=== PATIENT | male | born 1950 | race Caucasian/White ===

== ENCOUNTER → 2016-06-19 | Outpatient (CLI) | payer BC ==
[~2016-06-19] MED LIST: ALBUTEROL MININEB NEB; ALBUTEROL17 GM; ALLEGRA; AMLODIPINE BESYL5 MG PO; ASPIRIN325 M1 PO; ASPIRIN81 MG PO; ATORVASTATIN CA80 MG PO; CARDIZEM CD; CIPRO PO; CLOPIDOGREL75 MG PO; COUMADIN5 MG PO; DIOVAN HCT 160/1 TAB PO; DURLAZA162.5 MG PO; FLOMAX0.4 MG PO; GLIMEPIRIDE2 MG PO; IMDUR-ER30 M2 PO; INVOKANA100 MG PO; JANUVIA100 MG PO; JARDIANCE10 MG PO; K-DUR20 ME2 PO; LANTUS SOL100 UNIT/1 SUBQ; LANTUS100 U/M1 SQ; LASIX PO; LIPITOR80 MG PO; LISINOPRIL20 MG PO; LOPRESSOR PO; LORTAB 7.5-5001 TAB; MAIL ORDER PHARMACY; METFORMIN HCL500 M3 PO; METFORMIN PO; METOPROLOL TAR25 MG PO; MONTELUKAST SOD10 MG PO; NEXIUM; NITROGLYGERIN0.4 MG SL; PANTOPRAZOLE SO40 MG PO; PRINIVIL10 MG PO; REGLAN PO; SIMVASTATIN20 MG PO; SINGULAIR; SINGULAIR PO; SYNTHROID0.05 MG PO; SYNTHROID0.15 MG PO; UNKNOWN DIURETIC; VICODIN PO; VITAMIN B122500 MCG PO; VITAMIN C60 MG PO; VITAMIN D35000 UNIT PO; ZYRTEC10 M2 PO; [UNRECOGNIZED DRUG - OTHER]
--- NOTE | ~2016-06-19 | US113 ---
[facility] A Service of [facility] RADIOLOGY TEXT RESULTS PATIENT: EVANGELIST KIM LOCATION: [facility] : 52 UNIT #: [id number] AGE: [address]: LUISA APARICIO SEX: M ORDER DR: [id number] [facility] [address] [place], [place] [address] [id number] MR#: [id number] Acc #: [id number] NAME: EVANGELIST KIM : 1950 SEX: M STUDY DATE/TIME: 06/19/2016 14:47 UNIT: [facility] ROOM: STUDY DESCRIPTION: US Scrotal Duplex Complete Attending Physician: Generic Doctor Not In System Referring Physician: Generic Doctor Not In System Ordering Physician: Physician Non-Staff Primary Care Physician: Manuelito Blanton M.D. MEDICAL IMAGING REPORT This report is preliminary unless electronic signature is present EXAM Scrotal ultrasound with Doppler HISTORY Left testicle pain for 6 days. No injury. FINDINGS Ultrasound examination of the scrotum and testes was performed with hummel-scale and Doppler. There is no testicular mass or enlargement. Blood flow is noted in both testes on color Doppler. There are bilateral round, solid epididymal masses, 1 on the right and 2 on the left, measuring 1.3 cm in the right epididymal head, 1.5 cm in the left epididymal head, and 1.2 cm in the mid left epididymis. There is also a simple cyst in the left epididymal head measuring 9 mm. Very small bilateral hydroceles. IMPRESSION 1. Bilateral solid epididymal masses, 1 on the right and 2 on the left measuring 1.3 cm on the right, and 1.5 cm and 1.2 cm on the left. Suggest urologic referral. 2. There is also an incidental simple cyst in the left epididymal head measuring 9 mm. 3. Both testes are normal. 4. Normal blood flow to both testes on color Doppler. 5. Very small bilateral hydroceles. Dictated by... Jay Red M.D. THIS IS AN ELECTRONICALLY VERIFIED REPORT [facility] A Service of [facility] RADIOLOGY TEXT RESULTS PATIENT: EVANGELIST KIM LOCATION: [facility] : 54 UNIT #: [id number] AGE: [address]: LUISA APARICIO SEX: M ORDER DR: Jay Red M.D. at 06/20/2016 10:40 PM DFL/mohit TD: 06/20/2016 00:21 JOB #: [id number] MEDICAL IMAGING REPORT Page 1 of 1 COPY
== END | disposition home or self-care (01) ==
LOC: CGUS 14:16
DX: N45.2 Orchitis (principal); N50.89 Other specified disorders of the male genital organs; N43.3 Hydrocele, unspecified
CPT/HCPCS: 93975

== ENCOUNTER 2016-11-05 20:16 | Inpatient (IN) | payer BC ==
[~2016-11-05] VITALS: Ht 170.2 cm; Wt 97.2 kg
--- NOTE | ~2016-11-05 | EKG ---
PATIENT: EVANGELIST KIM UNIT #: [id number] Ventricular Rate: 54 BPM Atrial Rate: 54 BPM P-R Interval: 174 ms QRS Duration: 106 ms Q-T Interval: 488 ms QTC Calculation(Bezet): 462 ms P [place]: 38 degrees Calculated R [place]: 5 degrees Calculated T [place]: 124 degrees Diagnosis Line: Sinus bradycardia with Premature atrial complexes Diagnosis Line: Left ventricular hypertrophy with repolarization Diagnosis Line: abnormality Diagnosis Line: Abnormal ECG Diagnosis Line: When compared with ECG of 05-NOV-2016 20:21, Diagnosis Line: (unconfirmed) Diagnosis Line: Premature atrial complexes are now Present Diagnosis Line: Confirmed by PATRICIO MCGUIRE MD ([id number]) on 11/07/2016 Diagnosis Line: 4:56:58 PM INTERPRETING MD: SHAYAL ESPINOZA
--- NOTE | ~2016-11-05 | DS ---
Unit #: [id number] #: [id number] Patient: EVANGELIST KIM [id number] [address] [place], [place] [address] [id number] I MR#: [id number] NAME: EVANGELIST KIM ROOM: 578 Age: 66 Sex: M Admission Date: 11/06/2016 : 1950 Discharge Date: 11/08/2016 Attending Physician: Donny Quezada M.D. Referring Physician: Manuelito Blanton M.D. Primary Care Physician: Manuelito Blanton M.D. DISCHARGE SUMMARY DISCHARGE DIAGNOSES 1. Acute lateral wall non ST elevation myocardial infarction. 2. Coronary artery disease, status post left cardiac catheterization on 11/06/[address] Quezada, which revealed a normal left ventricular function. Distal left main 75%. Left anterior descending 100% at first septal zipper joiner. Left internal mammary artery to left anterior descending patent with no distal stenosis. First diagonal 99% with distal vessel normal. Saphenous vein graft to second diagonal with a thrombotic occlusion of 99%, very small distal vessel. Mid left circumflex 50%. First obtuse marginal 100%. Saphenous vein graft to first obtuse marginal patent. Right coronary artery dominant. Mid right coronary artery 60%. Distal right coronary artery 50%. Medical management with DAPT and Coumadin for six weeks. Consider percutaneous coronary intervention on saphenous vein graft to the diagonal if angina continues. May consider percutaneous coronary intervention on left main and first diagonal. Angina persists on medical management. 3. Hypertension. 4. Hyperlipidemia. 5. Diabetes mellitus type 2. 6. Obstructive sleep apnea. 7. Mild thrombocytopenia resolved. 8. Mild anemia with a hemoglobin of 11. DISCHARGE MEDICATIONS 1. Metformin 2,000 mg p.o. at bedtime. 2. Coumadin 7.5 mg x1 today and then 5 mg p.o. daily. 3. Januvia 1 tablet p.o. at bedtime. 4. Atorvastatin 80 mg p.o. at bedtime. 5. Metoprolol tartrate 25 mg p.o. b.i.d. 6. Furosemide 40 mg p.o. daily. 7. Lisinopril 10 mg p.o. daily. 8. Lantus 36 units subcu at bedtime. 9. Singulair 10 mg p.o. at bedtime. 10. Aspirin 81 mg p.o. daily. 11. Plavix 75 mg p.o. daily. 12. Invokana 100 mg p.o. at bedtime. 13. Jardiance 25 mg p.o. at bedtime. 14. Synthroid 200 mcg p.o. daily. 15. Imdur ER 30 mg p.o. daily. 16. Nitroglycerin 0.4 mg sublingual every 4 minutes x3 p.r.n. for chest pain. 17. Vitamin B12 1,000 mcg p.o. at bedtime. 18. Ascorbic acid 1,000 mg p.o. at bedtime. Unit #: [id number] #: [id number] Patient: EVANGELIST KIM 19. Vitamin D 5000 units p.o. at bedtime. 20. Potassium chloride 20 mEq p.o. daily. HOSPITAL COURSE This is a 66-year-old white male with the past medical history of hypertension, hyperlipidemia and diabetes mellitus type 2, GERD, asthma and obstructive sleep apnea with CPAP use. The patient also has a history of coronary artery disease and underwent coronary artery bypass grafting x3 grafts in the past in 2008. 2D echocardiogram in 2007 revealed an ejection fraction of 55%. The patient presented to the hospital on 11/06/2016 with complaints of chest pain at rest. The chest pain was accompanied by shortness of breath, diaphoresis, and nausea. There was radiation to left shoulder. He received nitroglycerin, which resolved his symptoms. In the emergency department, his point of care troponin was 4.83. He ruled in for a myocardial infarction. Chest x-ray revealed stable cardiomegaly with bibasilar atelectasis. EKG revealed sinus bradycardia with T wave inversion in the anterolateral and septal leads. The patient was started on high dose statin, aspirin, beta-maribell and FAHAD inhibitor. Heparin drip was started per weight base protocol. Fasting lipid profile was obtained. The patient was recommended for cardiac catheterization. Coronary angiography on 11/06/2016 revealed distal left main stenosis of 75%. The LAD was 100% at the first septal zipper joiner. There was a patent PALMA to the LAD. The first diagonal was 99%. There was no graft to the first diagonal. The saphenous vein graft to the second diagonal was a thrombotic occlusion of 99%. There was a very small distal vessel. The mid left circumflex was 50%. First obtuse marginal was 100%. There was a patent saphenous vein graft to the first obtuse marginal. The right coronary artery was dominant. There was no obstructive disease of 50% to 60% in the mid and distal segments. The patient was started on Integrilin, aspirin, and Plavix. He was considered for PCI of the diagonal. It was opted to try medical management. The patient was placed on aspirin, Plavix, and Coumadin for six weeks. Followed by a possible PCI if angina continues. The patient could undergo PCI of the saphenous vein graft to the second diagonal. He could also be considered for a PCI of the distal left main and first diagonal. A chest x-ray was obtained on 11/07/2016 and revealed no evidence of congestive heart failure. Telemetry reveals sinus bradycardia/sinus rhythm. There are no pauses or high degree AV blocks. The patient denies chest pain or shortness of breath. He was started on oral Lasix and his volume status is stable. His topical nitrates have been stopped and he is on Imdur as a long-acting nitrate. His Integrilin was stopped and he is off of heparin. EKG reveals no acute findings. Cath site is soft without hematoma. Troponin is trending down. His troponin peaked at 4.83 but is now 2.95. CK is 98 with an MB of 4.9 and MB% of 5.0. Patient has been instructed on the importance of medications. He has been advised to seek medical attention for recurrent chest pain. He was given Coumadin 7.5 mg yesterday and today. He will be sent home with Coumadin 5 mg p.o. daily. PT and INR has been ordered on 11/11/2016 at our office. He is stable and will be discharged home today. DIAGNOSTIC STUDIES LABORATORY STUDIES: Blood count 7.1, hemoglobin 13.8, hematocrit 40.8, platelets 145. Sodium 139, potassium 4.0, chloride 103, CO2 25, BUN 21, creatinine 0.9, glucose 129. AST 15, ALT 15, alk phos 96. Troponin 4.83 and 2.95. CK total 98, MB 4.9%, %MB 5.0. Total cholesterol 117, triglycerides 84, LDL 63. HDL 37. INR 1.1. Unit #: [id number] #: [id number] Patient: EVANGELIST KIM IMAGING STUDIES: Chest x-ray reveals status post median sternotomy and CABG. Stable cardiac enlargement. Final linear densities in bilateral lung bases unchanged. Could represent atelectasis or minimal chronic scarring. No pleural effusion, pneumothorax, or suspicious nodule. CARDIOVASCULAR STUDIES: Electrocardiogram reveals normal sinus rhythm. Mild T wave abnormality in the anterolateral and septal leads. QTC 440 msec. PHYSICAL EXAMINATION VITAL SIGNS: Temperature 98.4, pulse 55, blood pressure 110/61. CONSTITUTIONAL: This is a 66-year-old male in no acute distress. SKIN: Warm and dry. NECK: Supple. No jugular vein distention. No hepatojugular reflux. Normal carotid upstrokes. No carotid bruits auscultated. HEART: S1 and S2. Regular rate and rhythm. No murmurs, rubs or gallops. LUNGS: Bilateral breath sounds. Good air entry throughout lung sarabia. Respirations even and unlabored. No rales, rhonchi or wheezes. ABDOMEN: Soft, nontender, nondistended. Positive bowel sounds auscultated x4 quadrants. Left wrist is soft without hematoma. DISCHARGE INSTRUCTIONS 1. Patient will be discharged home today. 2. Followup with primary care provider in one to two weeks. 3. Followup with endocrinology as needed. 4. Followup with Dr. Quezada in six to eight weeks. All of us will call with an appointment. 5. Post cath instructions provided. 6. Patient has been advised to seek medical attention for recurrent chest pain. 7. Prescriptions have been provided for metoprolol, Furoside, Lipitor, lisinopril, Imdur, potassium chloride, Coumadin and nitroglycerin. 8. The patient has been advised to have a PT/INR on Thursday11/11/2016 in our office. 9. After six weeks of anticoagulation he could begin setup for a PCI and stent. Dictated by... Cherelle Spring APRN for Tyrel Mccarty/araceli TD: 11/11/2016 08:55 JOB #: [id number] CC: [facility] Unit #: [id number] #: [id number] Patient: EVANGELIST KIM DISCHARGE SUMMARY Page 1 of 1 X X DISCHARGE SUMMARY
--- NOTE | ~2016-11-05 | HP ---
Unit #: [id number] #: [id number] Patient: EVANGELIST KIM [id number] [address] [place], [place] [address] [id number] I MR#: [id number] NAME: EVANGELIST KIM ROOM: 578 Age: 66 Sex: M Admission Date: 11/06/2016 : 1950 Attending Physician: Di Howe M.D. Referring Physician: Manuelito Blanton M.D. Primary Care Physician: Manuelito Blanton M.D. HISTORY AND PHYSICAL HISTORY OF PRESENT ILLNESS This is a 66-year-old male with a prior history of hypertension, GERD, diabetes mellitus type 2, asthma, obstructive sleep apnea with CPAP use, history of kidney stones, and coronary artery disease, status post CABG x3 in the past. An echocardiogram in 2007 showed an LVEF of 55%. The patient presented to the ER with reports of midsternal chest tightness and heaviness that started around 7 p.m. on November 06, 2016, and occurred at rest. It was accompanied with shortness of breath, diaphoresis, nausea, and tightness radiating into his left shoulder. The pain lasted until he received nitroglycerin in the ER around 8 p.m. He is currently chest pain free. He denies palpitations or lightheadedness. He does report exertional shortness of breath at times. His point of care troponin in the ER was less than 0.05 and repeat troponin was 4.83. A chest x-ray showed stable cardiomegaly with bibasilar atelectasis. PAST MEDICAL HISTORY 1. Hypertension. 2. Gastroesophageal reflux disease. 3. Diabetes mellitus type 2. 4. Asthma. 5. Obstructive sleep apnea with CPAP. 6. Kidney stones. 7. Coronary artery disease, status post CABG x3 in 2008. 8. Echocardiogram with EF of 55% in 2007. 9. Cardiac stress test in June 2007 showed anteroapical wall ischemia. PAST SURGICAL HISTORY 1. CABG x3. 2. Vasectomy. 3. Knee surgery. 4. ESWL for kidney stones. 5. Thyroidectomy status post thyroid cancer. SOCIAL HISTORY He lives with his . He states he is fairly active. He is able to mow his lawn with no chest discomfort, although he does have some shortness of breath when working on his lawn which resolves with rest. He denies alcohol or illicit drug use. He is a lifetime nonsmoker. FAMILY HISTORY His mother had coronary artery disease, and his father had an CA at the age of 91. Unit #: [id number] #: [id number] Patient: EVANGELIST KIM E ALLERGIES Sulfa and hydromorphone. HOME MEDICATIONS 1. Singulair 10 mg p.o. at bedtime. 2. Lisinopril 20 mg p.o. at bedtime. 3. Metoprolol tartrate 25 mg p.o. at bedtime. 4. Atorvastatin 80 mg p.o. at bedtime. 5. Jardiance 25 mg p.o. at bedtime. 6. Invokana 100 mg p.o. at bedtime. 7. Januvia 100 mg p.o. at bedtime. 8. Lantus Solostar 36 units subcutaneous at bedtime. 9. Metformin 2000 mg p.o. at bedtime. 10. Vitamin B12 at 1000 mcg p.o. at bedtime. 11. Vitamin D3 at 5000 units p.o. at bedtime. 12. Vitamin C at 1000 mg p.o. at bedtime. 13. Durlaza 162 mg p.o. at bedtime. 14. Synthroid 200 mcg p.o. at bedtime. REVIEW OF SYSTEMS A 10-point review of systems was conducted and is otherwise negative except for what is stated in the HPI. PHYSICAL EXAMINATION VITAL SIGNS: Temperature 98.2, heart rate 62, respiratory rate 18, and blood pressure 167/60. GENERAL: This is an alert and oriented 66-year-old male resting in bed in no acute distress. HEENT: Head is atraumatic and normocephalic. Pupils are equal and reactive to light. Mucous membranes are moist and intact. NECK: Supple. Trachea is midline. No JVD. LUNGS: Clear and nonlabored respirations. CARDIOVASCULAR: S1 and S2, regular rate and rhythm. No significant murmurs, rubs, or gallops. ABDOMEN: Soft, nontender, and nondistended. Bowel sounds are positive. EXTREMITIES: Pulses are palpable. No pedal edema. No cyanosis. NEUROLOGIC: Alert and oriented x3. Follows all commands equally and moves all extremities without difficulty. DIAGNOSTIC STUDIES LABORATORY: Sodium 140, potassium 4.2, chloride 106, BUN 21, creatinine 0.8, and glucose 217. Hemoglobin 13.6, hematocrit 41, white blood cell count 8.3, and platelets 149,000. Point of care troponin less than 0.05 and repeat troponin 4.83. AST 15, ALT 15, and alkaline phosphatase 96. PT 10.5, INR 1, and PTT 27.3. IMAGING: Chest x-ray shows stable cardiomegaly and bibasilar atelectasis. CARDIOLOGY: EKG shows sinus bradycardia with ventricular rate of 51 and T wave inversions in septal and anterolateral leads. ASSESSMENT 1. Non-ST segment myocardial infarction. 2. Chest pain. 3. Noninsulin-dependent diabetes mellitus. 4. Hypertension. 5. Hyperlipidemia. 6. Obstructive sleep apnea. Unit #: [id number] #: [id number] Patient: EVANGELIST KIM 7. Coronary artery disease, status post three-vessel coronary artery bypass grafting in 2008. 8. Metabolic syndrome. PLAN 1. Continue statin, aspirin, beta maribell, and FAHAD. 2. Start heparin drip, weight-based protocol, with 5000 units heparin bolus. 3. Plan for cardiac cath. 4. Check fasting lipid profile. 5. Discontinue Lovenox. 6. Check labs in the a.m. 1. Dictated by Ana Maria Taylor APRN for Tyrel Mccarty TD: 11/06/2016 14:32 JOB #: [id number] HISTORY AND PHYSICAL Page 1 of 1 X X HISTORY AND PHYSICAL
--- NOTE | ~2016-11-05 | CR63 ---
[facility] A Service of [facility] RADIOLOGY TEXT RESULTS PATIENT: EVANGELIST KIM LOCATION: [facility] : 54 UNIT #: [id number] AGE: [address]: Donny Quezada MD SEX: M ORDER DR: [id number] [facility] [address] [place], [place] [address] [id number] I MR#: [id number] Acc #: [id number] NAME: EVANGELIST KIM : 1950 SEX: M STUDY DATE/TIME: 11/07/2016 8:42 UNIT: [facility] ROOM: [facility] STUDY DESCRIPTION: CR Chest 2 View Attending Physician: Donny Quezada M.D. Referring Physician: Manuelito Blanton M.D. Ordering Physician: Donny Quezada M.D. Primary Care Physician: Manuelito Blanton M.D. MEDICAL IMAGING REPORT This report is preliminary unless electronic signature is present EXAM 2 views chest, 11/07/2016. HISTORY Rhonchi. TECHNIQUE PA and lateral radiographs of the chest are presented. COMPARISON 11/05/2016 FINDINGS Status post median sternotomy and CABG. Stable cardiac enlargement. Lung volumes moderate. Fine linear densities, bilateral lung bases, unchanged. These may reflect persistent atelectasis or areas of minimal chronic scarring. There is no clear indication of acute infectious or inflammatory disease. There is no pleural effusion or pneumothorax, and no suspicious nodule. No acute-appearing bony abnormality. Visualized upper abdomen unremarkable. Dictated by... Duane Damian M.D. THIS IS AN ELECTRONICALLY VERIFIED REPORT Duane Damian M.D. at 11/10/2016 12:58 PM SANDRO/ismael TD: 11/07/2016 17:58 JOB #: [id number] [facility] A Service of [facility] RADIOLOGY TEXT RESULTS PATIENT: EVANGELIST KIM LOCATION: [facility] 57 : 54 UNIT #: [id number] AGE: [address]: Donny Quezada MD SEX: M ORDER DR: MEDICAL IMAGING REPORT Page 1 of 1 COPY
--- NOTE | ~2016-11-05 | CR72 ---
[facility] A Service of [facility] RADIOLOGY TEXT RESULTS PATIENT: EVANGELIST KIM LOCATION: [facility] 578-01 : 54 UNIT #: [id number] AGE: [address]: Di Howe MD SEX: M ORDER DR: [id number] [facility] [address] [place], [place] [address] [id number] I MR#: [id number] Acc #: [id number] NAME: EVANGELIST KIM : 1950 SEX: M STUDY DATE/TIME: 11/05/2016 21:34 UNIT: [facility] ROOM: [facility] STUDY DESCRIPTION: CR Chest Single View Portable Attending Physician: Di Howe M.D. Referring Physician: Manuelito Blanton M.D. Ordering Physician: Jet Mills M.D. Primary Care Physician: Manuelito Blanton M.D. MEDICAL IMAGING REPORT This report is preliminary unless electronic signature is present EXAM Portable chest, 11/05/2016 HISTORY Chest pain and shortness of breath beginning 11/04/2016. Benign essential hypertension. FINDINGS The heart is enlarged but stable compared with 05/27/2012 status post median sternotomy. There is poor inspiratory result with bibasilar atelectasis. The lungs are otherwise clear. There are no pleural effusions. IMPRESSION 1. Stable cardiomegaly status post median sternotomy compared with 05/27/2012. 2. Poor inspiratory result with bibasilar atelectasis. Dictated by... Tyler Morris M.D. THIS IS AN ELECTRONICALLY VERIFIED REPORT Tyler Morris M.D. at 11/06/2016 2:15 PM JUAN M/santos TD: 11/06/2016 04:07 JOB #: [id number] MEDICAL IMAGING REPORT Page 1 of 1 COPY
--- NOTE | ~2016-11-05 | A ---
[facility] Nutrition Therapy DATE: 11/07/16 Patient: EVANGELIST KIM Physician: HUNTER Address: [address] [place] [address] Room/Bed: [address] [place] [address], Zip: [place] [address] Admit Date: 11/06/16 Date of : [birth year] Height: 5 7 Weight: 216 98.4 NUTRITIONAL ASSESSMENT: REASON: Consult re: "diet recs" Admitting dx: 66 y/o male admitted with CP, found to have mild PR PMH: HTN, GERD, T2DM, CAD s/p CABG x 3, ZORAIDA w/home CPAP, kidney stones, asthma Anthropometrics: Ht: 67", Wt: 98.4 kg, BMI: 33 (stage I obese) Labs: glucose 171, POC 159-194, lipid panel WNL Meds: Reviewed Assessment: Chart reviewed, events noted. See admitting dx and PMH as stated above. RD provided both healthy heart and DM diet education as requested by the patient. States his A1C was recently checked at his MD office and was ~7-7.2 (no updated A1C in [employer]). RD provided the following handouts: Cardiac/TLC nutrition therapy, Type II DM nutrition, 1800 calorie/day 5-day sample meal plan. All were verbally reviewed with the patient and his , who also has DM. They were interactive throughout the education and asked questions. Suspect good understanding and compliance. Contact info left. Recommendations: Please add 60g carb restriction to current diet order (healthy heart). Diet education was provided as stated above. Please consult with any further nutritional needs. Respectfully, Nimisha Lopez RD, [employer] [facility] cc: client file
--- NOTE | ~2016-11-05 | EKG ---
PATIENT: EVANGELIST KIM UNIT #: [id number] Ventricular Rate: 51 BPM Atrial Rate: 51 BPM P-R Interval: 188 ms QRS Duration: 108 ms Q-T Interval: 492 ms QTC Calculation(Bezet): 453 ms P [place]: 5 degrees Calculated R [place]: 2 degrees Calculated T [place]: 122 degrees Diagnosis Line: Sinus bradycardia Diagnosis Line: ST and Marked T wave abnormality, consider Diagnosis Line: anterolateral ischemia Diagnosis Line: Abnormal ECG Diagnosis Line: When compared with ECG of 06-NOV-2016 06:33, Diagnosis Line: (unconfirmed) Diagnosis Line: Premature atrial complexes are no longer Present Diagnosis Line: Confirmed by PATRICIO MCGUIRE MD ([id number]) on 11/07/2016 Diagnosis Line: 4:59:14 PM INTERPRETING MD: SHAYLA ESPINOZA
--- NOTE | ~2016-11-05 | EKG ---
PATIENT: EVANGELIST KIM UNIT #: [id number] Ventricular Rate: 60 BPM Atrial Rate: 60 BPM P-R Interval: 186 ms QRS Duration: 100 ms Q-T Interval: 440 ms QTC Calculation(Bezet): 440 ms P [place]: -7 degrees Calculated T [place]: 100 degrees Diagnosis Line: Normal sinus rhythm Diagnosis Line: ST and T wave abnormality, consider anterolateral Diagnosis Line: ischemia Diagnosis Line: Abnormal ECG Diagnosis Line: When compared with ECG of 07-NOV-2016 08:10, Diagnosis Line: Sinus rhythm has replaced Ectopic atrial rhythm Diagnosis Line: T wave inversion less evident in Lateral leads Diagnosis Line: Confirmed by MIKEY MCKENZIE MD ([id number]) on Diagnosis Line: 11/10/2016 4:48:44 PM INTERPRETING MD: MARCIO
--- NOTE | ~2016-11-05 | EKG ---
PATIENT: EVANGELIST KIM UNIT #: [id number] Ventricular Rate: 60 BPM Atrial Rate: 60 BPM P-R Interval: 168 ms QRS Duration: 102 ms Q-T Interval: 444 ms QTC Calculation(Bezet): 444 ms P [place]: -29 degrees Calculated R [place]: -18 degrees Calculated T [place]: 99 degrees Diagnosis Line: Normal sinus rhythm Diagnosis Line: ST and T wave abnormality, consider anterolateral Diagnosis Line: ischemia Diagnosis Line: Abnormal ECG Diagnosis Line: When compared with ECG of 03-SEP-2012 12:07, Diagnosis Line: ST more depressed Anterior leads Diagnosis Line: T wave inversion no longer evident in Inferior Diagnosis Line: leads Diagnosis Line: T wave inversion more evident in Anterior leads Diagnosis Line: T wave inversion less evident in Lateral leads Diagnosis Line: Confirmed by PATRICIO MCGUIRE MD ([id number]) on 11/07/2016 Diagnosis Line: 4:53:13 PM INTERPRETING MD: SHAYLA ESPINOZA
--- NOTE | ~2016-11-05 | EKG ---
PATIENT: EVANGELIST KIM UNIT #: [id number] Ventricular Rate: 50 BPM Atrial Rate: 50 BPM P-R Interval: 184 ms QRS Duration: 104 ms Q-T Interval: 490 ms QTC Calculation(Bezet): 446 ms P [place]: -32 degrees Calculated R [place]: 11 degrees Calculated T [place]: 129 degrees Diagnosis Line: Unusual P axis, possible ectopic atrial Diagnosis Line: bradycardia Diagnosis Line: ST and T wave abnormality, consider anterolateral Diagnosis Line: ischemia Diagnosis Line: Abnormal ECG Diagnosis Line: When compared with ECG of 06-NOV-2016 08:48, Diagnosis Line: (unconfirmed) Diagnosis Line: Ectopic atrial rhythm has replaced Sinus rhythm Diagnosis Line: Confirmed by PATRICIO MCGUIRE MD ([id number]) on 11/07/2016 Diagnosis Line: 5:19:21 PM INTERPRETING MD: SHAYLA ESPINOZA
[~2016-11-05 20:16] MED LIST changes: -ASPIRIN81 MG PO; -ATORVASTATIN CA80 MG PO; -CLOPIDOGREL75 MG PO; -COUMADIN5 MG PO; -DURLAZA162.5 MG PO; -IMDUR-ER30 M2 PO; -INVOKANA100 MG PO; -JANUVIA100 MG PO; -JARDIANCE10 MG PO; -K-DUR20 ME2 PO; -LANTUS SOL100 UNIT/1 SUBQ; -LASIX PO; -LIPITOR80 MG PO; -LISINOPRIL20 MG PO; -METFORMIN HCL500 M3 PO; -METOPROLOL TAR25 MG PO; -MONTELUKAST SOD10 MG PO; -NITROGLYGERIN0.4 MG SL; -PRINIVIL10 MG PO; -SYNTHROID0.05 MG PO; -VITAMIN B122500 MCG PO; -VITAMIN C60 MG PO; -VITAMIN D35000 UNIT PO; -[UNRECOGNIZED DRUG - OTHER]
[2016-11-05 21:32] LABS: BASOPHIL% 0.3 % (0-2.5); EOSINOPHIL# 0.2 X10e3 (0-0.7); HEMOGLOBIN 13.6 gm/dL (13.0-16.0); LYMPHOCYTE# 1.3 X10e3 (1.0-3.5); LYMPHOCYTE% 16.2 % (17.0-45.0); MEAN CELL VOLUME 93.3 FL (83-96); MEAN CORPUSCULAR HGB CONC 33.2 g/dL (30-36); MEAN PLATELET VOLUME 9.8 FL (6.5-11.5); MONOCYTE# 0.7 X10e3 (0-1.0); MONOCYTE% 8.6 % (3.0-12.0); NEUTROPHIL% 71.9 % (40-75); PLATELET COUNT 149 X10e3 (140-420); RED CELL DISTRIBUTION WIDTH 13.9 % (11.0-15.5); WHITE BLOOD COUNT 8.3 X10e3 (4.0-10.5)
[2016-11-05 21:34] LABS: DIFF IND NO
[2016-11-05 21:38] LABS: POC - CKMB 1.4 ng/mL (0.0-7.9); POC - TROPONIN <0.05 ng/mL (<=0.05)
[2016-11-05 22:19] LABS: ALBUMIN SERUM 3.7 g/dL (3.5-5.0); BILIRUBIN, DIRECT 0.1 mg/dL (0.0-0.2); BILIRUBIN,INDIRECT 0.8 mg/dL (0.0-0.9); BILIRUBIN,TOTAL 0.9 mg/dL (0.2-2.0); BUN/CREATININE RATIO 26.25; CALCIUM SERUM 9.2 mg/dL (8.4-10.2); CREATININE SERUM 0.8 mg/dL (0.6-1.4); GLOM FILT RATE Estimated 94.4 mL/min (>60); POTASSIUM 4.2 mmol/L (3.5-5.1); PROTEIN TOTAL SERUM 6.8 g/dL (6.0-8.3)
[2016-11-06] MEDS ORDERED: MONTELUKAST SOD10 MG PO (02:03)
[2016-11-06] MEDS ORDERED: LISINOPRIL20 MG PO (02:03)
[2016-11-06] MEDS ORDERED: ATORVASTATIN CA80 MG PO (02:04)
[2016-11-06] MEDS ORDERED: METOPROLOL TAR25 MG PO (02:04)
[2016-11-06] MEDS ORDERED: INVOKANA100 MG PO (02:05)
[2016-11-06] MEDS ORDERED: JARDIANCE10 MG PO (02:05)
[2016-11-06] MEDS ORDERED: JANUVIA100 MG PO (02:06)
[2016-11-06] MEDS ORDERED: LANTUS SOL100 UNIT/1 SUBQ (02:07)
[2016-11-06] MEDS ORDERED: METFORMIN HCL500 M3 PO (02:07)
[2016-11-06] MEDS ORDERED: VITAMIN B122500 MCG PO (02:08)
[2016-11-06] MEDS ORDERED: VITAMIN D35000 UNIT PO (02:09)
[2016-11-06] MEDS ORDERED: VITAMIN C60 MG PO (02:09)
[2016-11-06] MEDS ORDERED: SYNTHROID0.05 MG PO (02:10)
[2016-11-06] MEDS ORDERED: DURLAZA162.5 MG PO (02:10)
[2016-11-06 07:52] LABS: CHOLESTEROL 117 mg/dL (0-200); HDL CHOLESTEROL 37 mg/dL (29-75); LDL CHOLESTEROL 63 mg/dL (-130); LDL/HDL RATIO 2 RATIO (0-4); TRIGLYCERIDES 84 mg/dL (10-160)
[2016-11-06 08:51] LABS: HEMATOCRIT 38.8 % (38.0-50.0); HEMOGLOBIN 13.2 gm/dL (13.0-16.0); MEAN CELL VOLUME 92.9 FL (83-96); MEAN CORPUSCULAR HEMOGLOBIN 31.6 PG (28-34); MEAN PLATELET VOLUME 10.6 FL (6.5-11.5); RED BLOOD COUNT 4.18 X10e (3.90-5.60); RED CELL DISTRIBUTION WIDTH 13.5 % (11.0-15.5); WHITE BLOOD COUNT 7.5 X10e3 (4.0-10.5)
[2016-11-06 09:04] LABS: BUN/CREATININE RATIO 27.5; CALCIUM SERUM 9.1 mg/dL (8.4-10.2); CREATININE SERUM 0.8 mg/dL (0.6-1.4); GLOM FILT RATE Estimated 94.4 mL/min (>60); POTASSIUM 3.8 mmol/L (3.5-5.1)
[2016-11-06 09:35] LABS: PARTIAL THROMBOPLASTIN TIME 27.3 SECONDS (23.5-31.3); PROTHROMBIN TIME (PATIENT) 10.5 SECONDS (10.0-11.7)
[2016-11-06 19:19] LABS: HEMATOCRIT 38.3 % (38.0-50.0); MEAN CELL VOLUME 92.6 FL (83-96); MEAN CORPUSCULAR HEMOGLOBIN 31.5 PG (28-34); MEAN PLATELET VOLUME 9.8 FL (6.5-11.5); RED BLOOD COUNT 4.13 X10e (3.90-5.60); RED CELL DISTRIBUTION WIDTH 13.4 % (11.0-15.5); WHITE BLOOD COUNT 6.5 X10e3 (4.0-10.5)
[2016-11-08 06:21] LABS: INR 0.9
[2016-11-08 12:24] LABS: HEMATOCRIT 40.8 % (38.0-50.0); HEMOGLOBIN 13.8 gm/dL (13.0-16.0); MEAN CELL VOLUME 93.5 FL (83-96); MEAN CORPUSCULAR HEMOGLOBIN 31.5 PG (28-34); MEAN CORPUSCULAR HGB CONC 33.7 g/dL (30-36); MEAN PLATELET VOLUME 10.6 FL (6.5-11.5); RED BLOOD COUNT 4.37 X10e (3.90-5.60); RED CELL DISTRIBUTION WIDTH 13.9 % (11.0-15.5); WHITE BLOOD COUNT 7.1 X10e3 (4.0-10.5)
[2016-11-08 13:06] LABS: BUN/CREATININE RATIO 23.33; CALCIUM SERUM 9.4 mg/dL (8.4-10.2); CREATININE SERUM 0.9 mg/dL (0.6-1.4); GLOM FILT RATE Estimated 89.9 mL/min (>60)
[2016-11-08] MEDS ORDERED: COUMADIN5 MG PO (13:20)
[2016-11-08] MEDS ORDERED: IMDUR-ER30 M2 PO (13:21)
[2016-11-08] MEDS ORDERED: K-DUR20 ME2 PO (13:22)
[2016-11-08] MEDS ORDERED: LOPRESSOR PO (13:22)
[2016-11-08] MEDS ORDERED: LIPITOR80 MG PO (13:23)
[2016-11-08] MEDS ORDERED: LASIX PO (13:23)
[2016-11-08] MEDS ORDERED: PRINIVIL10 MG PO (13:24)
[2016-11-08] MEDS ORDERED: [UNRECOGNIZED DRUG - OTHER] (13:24)
[2016-11-08 13:25] LABS: MB 4.9 ng/ml
[2016-11-08] MEDS ORDERED: ASPIRIN81 MG PO (13:29)
[2016-11-08] MEDS ORDERED: SINGULAIR PO (13:30)
[2016-11-08] MEDS ORDERED: CLOPIDOGREL75 MG PO (14:07)
[2016-11-08] MEDS ORDERED: NITROGLYGERIN0.4 MG SL (14:08)
== END 2016-11-08 15:00 | disposition home or self-care (01) | DRG 282 ==
LOC: CED 20:16 → CEDOF 11-06 00:05 → C5C 11-06 00:22 → CED 11-06 00:22 → CEDOF 11-06 00:22 → C5C 11-06 01:41 → CEDOF 11-06 01:41 → C5C 11-06 01:41
PROVIDERS: Emergency Medicine; Internal Medicine Cardiovascular Disease
PROC: 4A023N7 Measurement of Cardiac Sampling and Pressure, Left Heart, Percutaneous Approach (ICD-10-PCS; principal; 2016-11-06)
PROC: B215YZZ Fluoroscopy of Left Heart using Other Contrast (ICD-10-PCS; 2016-11-06)
PROC: B211YZZ Fluoroscopy of Multiple Coronary Arteries using Other Contrast (ICD-10-PCS; 2016-11-06)
DX: I21.4 Non-ST elevation (NSTEMI) myocardial infarction (principal); D69.6 Thrombocytopenia, unspecified; E88.81 Metabolic syndrome and other insulin resistance; I10 Essential (primary) hypertension; E11.9 Type 2 diabetes mellitus without complications; D64.9 Anemia, unspecified; I25.10 Atherosclerotic heart disease of native coronary artery without angina pectoris; Z95.1 Presence of aortocoronary bypass graft; E78.5 Hyperlipidemia, unspecified; Z79.84 Long term (current) use of oral hypoglycemic drugs; G47.33 Obstructive sleep apnea (adult) (pediatric); K21.9 Gastro-esophageal reflux disease without esophagitis; J45.909 Unspecified asthma, uncomplicated; Z87.442 Personal history of urinary calculi; Z82.49 Family history of ischemic heart disease and other diseases of the circulatory system; Z88.2 Allergy status to sulfonamides
CPT/HCPCS: 36415; 71010; 71020; 80048; 80061; 80076; 82550; 82553; 82947; 84484; 85025; 85027; 85610; 85730; 93005; 99152; 99153; 99285; C1769; C1887; C1894; J1327; J1644; J1650; J1815; J2250; J2405; J3010